=== PATIENT | male | born 1980 | race African-American/Black ===

== ENCOUNTER 2016-05-21 21:11 | Emergency (ER) | payer SELFPAY ==
[~2016-05-21] VITALS: Ht 188 cm; Wt 140.9 kg
[2016-05-21 21:14] VITALS: BP 162/116; PULSE 102; RESP 18; TEMP 99.4; O2SAT 100
[2016-05-22] MEDS ORDERED: oxyCODONE/ACETAMINOPHEN 5 MG/325 MG TAB PO ONE (02:15)
[2016-05-22] MEDS ORDERED: IBUP-232 PO (02:17)
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
[2016-05-22] MEDS ORDERED: HYDR-3533 PO (06:03)
== END 2016-05-22 09:00 | disposition home or self-care (01) ==
LOC: NEPE 21:11
DX: S59.901A Unspecified injury of right elbow, initial encounter (principal); S06.899A Other specified intracranial injury with loss of consciousness of unspecified duration, initial encounter; Z72.0 Tobacco use; F12.10 Cannabis abuse, uncomplicated; V86.09XA Driver of other special all-terrain or other off-road motor vehicle injured in traffic accident, initial encounter; Y93.89 Activity, other specified; Y92.89 Other specified places as the place of occurrence of the external cause; Y99.8 Other external cause status
CPT/HCPCS: 29105; 70450; 72072; 72100; 72125; 73030; 73080; 73564; 99284; L0150